=== PATIENT | female | born 1980 | race Caucasian/White ===

== ENCOUNTER 2021-03-31 14:22 | Emergency (ER) | payer BC ==
[~2021-03-31] VITALS: Ht 162.6 cm; Wt 72.6 kg
--- NOTE | 2021-03-31 15:24 | NUR ---
Gave pt d/c instructions, pt verbalized understanding.
[2021-03-31 15:25] VITALS: BP 124/66
== END 2021-03-31 15:27 | disposition home or self-care (01) ==
LOC: ER 14:22
DX: R55 Syncope and collapse (principal); T50.B95A Adverse effect of other viral vaccines, initial encounter; Y92.89 Other specified places as the place of occurrence of the external cause
CPT/HCPCS: 93005; A4663